=== PATIENT | female | born 1985 | race Caucasian/White ===

== ENCOUNTER 2019-08-30 21:07 | Emergency (ER) | payer OTHER ==
[~2019-08-30] VITALS: Ht 154.9 cm; Wt 49.9 kg
[2019-08-30 21:19] VITALS: BP 116/52; Ht 154.9 cm; Wt 49.9 kg
== END 2019-08-30 22:41 | disposition home or self-care (01) ==
LOC: ED 21:07
DX: N94.10 Unspecified dyspareunia (principal); Z98.890 Other specified postprocedural states; Z90.89 Acquired absence of other organs
CPT/HCPCS: 87491; 87591